=== PATIENT | female | born 1970 | race Caucasian/White ===

== ENCOUNTER 2017-11-28 10:57 | Day surgery (SDC) | payer MEDICAID ==
[~2017-11-28] VITALS: Ht 157.5 cm; Wt 56.4 kg
[2017-11-28] MEDS ORDERED: PROPOFOL 1% 20 ML VIAL IVP ONE (10:58)
[2017-11-28] MEDS ORDERED: LIDOCAINE HCL/PF 2% 5 ML SYRINGE IVP ONE (10:58)
[2017-11-28] MEDS ORDERED: SODIUM CHLORIDE 0.9% 1,000 ML IV ONE ×2 (11:09→11:30)
[2017-11-28] MEDS ORDERED: LEVO75 PO (11:24)
== END 2017-11-28 14:20 | disposition home or self-care (01) ==
LOC: SURGERY 10:57
PROVIDERS: ATTEND Internal Medicine Gastroenterology
DX: D12.7 Benign neoplasm of rectosigmoid junction (principal); K63.89 Other specified diseases of intestine; E03.9 Hypothyroidism, unspecified; M81.0 Age-related osteoporosis without current pathological fracture; Z98.890 Other specified postprocedural states; Z79.899 Other long term (current) drug therapy
CPT/HCPCS: 36415; 45380; 84703; 88305; C1769; J2704; J3490; J7030

== ENCOUNTER 2017-12-05 10:04 | Day surgery (SDC) | payer MEDICAID ==
[~2017-12-05] VITALS: Ht 154.9 cm; Wt 62.5 kg
[~2017-12-05 10:04] MED LIST: LEVO75 PO; SODIUM CHLORIDE 0.9% 1,000 ML IV ONE
[2017-12-05] MEDS ORDERED: SODIUM CHLORIDE 0.9% 1,000 ML IV ONE ×2 (10:55→11:08)
[2017-12-05] MEDS ORDERED: LIDOCAINE HCL/PF 2% 5 ML VIAL INJ ONE (12:00)
== END 2017-12-05 14:00 | disposition home or self-care (01) ==
LOC: SURGERY 10:04
PROVIDERS: ATTEND Internal Medicine Gastroenterology
DX: K29.50 Unspecified chronic gastritis without bleeding (principal); B96.81 Helicobacter pylori [H. pylori] as the cause of diseases classified elsewhere; K44.9 Diaphragmatic hernia without obstruction or gangrene; M81.0 Age-related osteoporosis without current pathological fracture; E89.0 Postprocedural hypothyroidism; Z98.890 Other specified postprocedural states; Z79.899 Other long term (current) drug therapy
CPT/HCPCS: 43239; 88305; 88312; C1769; J3490; J7030